=== PATIENT | female | born 1980 | race African-American/Black ===

== ENCOUNTER 2020-10-28 12:44 | Inpatient (IN) | payer OTHER ==
[2020-10-28 13:29] VITALS: BMI 22.2
[2020-10-28] MEDS ORDERED: BISMUTH SUBSALICYLATE 262 MG/15 ML BTL PO PRN (14:29)
[2020-10-28] MEDS ORDERED: ACETAMINOPHEN 325 MG TABLET (FP) PO PRN ×2 (14:29)
[2020-10-28] MEDS ORDERED: MAGNESIUM CITRATE 300 ML BOTTLE PO PRN (14:29)
[2020-10-28] MEDS ORDERED: ONDANSETRON *ODT* 4 MG TABLET SL PRN (14:29)
[2020-10-28] MEDS ORDERED: METHOCARBAMOL 500 MG TABLET PO PRN (14:29)
[2020-10-28] MEDS ORDERED: MENTHOL/PHENOL 1 EACH UD MM PRN (14:29)
[2020-10-28] MEDS ORDERED: IBUPROFEN 400 MG TABLET (FP) PO PRN (14:29)
[2020-10-28] MEDS ORDERED: MAG HYDROX/AL HYDROX/SIMETH 30 ML UNIT-DOSE CUP PO PRN (14:29)
[2020-10-28] MEDS ORDERED: chlordiazePOXIDE HCL 25 MG CAPSULE PO PRN (14:29)
[2020-10-28] MEDS ORDERED: MAGNESIUM HYDROX 2400MG/30ML ORAL SUSPENSION 30 ML CUP PO PRN (14:29)
[2020-10-28 17:44] LABS: HEMATOCRIT 36.2 % (32.4-45.2); HEMOGLOBIN 11.7 GM/dL (10.7-15.3); MCH 26.1 pg (25.7-33.7); MCHC 32.3 g/dl (32.0-36.0); MEAN CELL VOLUME 80.9 fl (80-96); MEAN PLT VOLUME 10.7 fl (7.5-11.1); PLATELET COUNT 206 K/MM3 (134-434); RBC 4.47 M/mm3 (3.60-5.2); RDW 14.2 % (11.6-15.6); WHITE BLOOD COUNT 5.7 K/mm3 (4.0-10.0)
[2020-10-28 17:46] LABS: ALBUMIN 3.4 g/dl (3.4-5.0); BLOOD UREA NITROGEN 9.7 mg/dL (7-18)
[2020-10-28 17:47] LABS: CALCIUM 9.1 mg/dL (8.5-10.1)
[2020-10-28 17:49] LABS: CREATININE 0.8 mg/dL (0.55-1.3)
[2020-10-28 17:50] LABS: BILIRUBIN,TOTAL 0.2 mg/dL (0.2-1)
[2020-10-28] MEDS: chlordiazePOXIDE HCL 25 MG CAPSULE PO SCH ×2 (18:14→22:29)
[2020-10-28] MEDS: PRENATAL VITAMINS W/ FOLIC ACID TABLET (FP) PO SCH (18:16)
[2020-10-28] MEDS: hydrOXYzine PAMOATE 25 MG CAPSULE (FP) PO SCH ×2 (18:17→22:31)
[2020-10-28] MEDS: MELATONIN 5 MG TABLETS PO SCH (22:07)
[2020-10-28] MEDS: THIAMINE HCL 100 MG TABLET (FP) PO SCH (22:07)
[2020-10-29] MEDS: chlordiazePOXIDE HCL 25 MG CAPSULE PO SCH (06:36)
[2020-10-29] MEDS: hydrOXYzine PAMOATE 25 MG CAPSULE (FP) PO SCH ×5 (06:37→22:38)
[2020-10-29] MEDS ORDERED: LORazepam 1 MG TABLET PO PRN (09:58)
[2020-10-29] MEDS: PRENATAL VITAMINS W/ FOLIC ACID TABLET (FP) PO SCH (11:38)
[2020-10-29] MEDS: LORazepam 2 MG TABLET PO SCH ×3 (11:38→22:54)
[2020-10-29] MEDS: FLUoxetine HCL 20 MG CAPSULE PO SCH (11:39)
[2020-10-29] MEDS: NICOTINE POLACRILEX 2 MG GUM BUC PRN (13:11)
[2020-10-29] MEDS: traZODone HCL 50 MG TABLET (FP) PO SCH (22:37)
[2020-10-29] MEDS: MELATONIN 5 MG TABLETS PO SCH (22:37)
[2020-10-29] MEDS: THIAMINE HCL 100 MG TABLET (FP) PO SCH (22:38)
[2020-10-30] MEDS ORDERED: chlordiazePOXIDE HCL 25 MG CAPSULE PO SCH (05:00)
[2020-10-30] MEDS: LORazepam 2 MG TABLET PO SCH (06:00)
[2020-10-30] MEDS: hydrOXYzine PAMOATE 25 MG CAPSULE (FP) PO SCH ×5 (07:00→22:38)
[2020-10-30] MEDS: PRENATAL VITAMINS W/ FOLIC ACID TABLET (FP) PO SCH (10:15)
[2020-10-30] MEDS: LORazepam 1 MG TABLET PO SCH ×3 (10:16→22:35)
[2020-10-30] MEDS: FLUoxetine HCL 20 MG CAPSULE PO SCH (10:16)
[2020-10-30] MEDS: POTASSIUM CHLORIDE TABS 20 MEQ TABLET.ER (FP) PO SCH ×3 (10:40→17:52)
[2020-10-30] MEDS: NICOTINE POLACRILEX 2 MG GUM BUC PRN ×3 (11:11→17:37)
[2020-10-30] MEDS: THIAMINE HCL 100 MG TABLET (FP) PO SCH (22:34)
[2020-10-30] MEDS: traZODone HCL 50 MG TABLET (FP) PO SCH (22:34)
[2020-10-30] MEDS: MELATONIN 5 MG TABLETS PO SCH (22:34)
[2020-10-31] MEDS ORDERED: chlordiazePOXIDE HCL 10 MG CAPSULE PO PRN
[2020-10-31] MEDS ORDERED: chlordiazePOXIDE HCL 10 MG CAPSULE PO SCH (05:00)
[2020-10-31] MEDS: LORazepam 1 MG TABLET PO SCH (06:11)
[2020-10-31] MEDS: hydrOXYzine PAMOATE 25 MG CAPSULE (FP) PO SCH ×5 (06:12→22:25)
[2020-10-31] MEDS: PRENATAL VITAMINS W/ FOLIC ACID TABLET (FP) PO SCH (10:51)
[2020-10-31] MEDS: FLUoxetine HCL 20 MG CAPSULE PO SCH (10:51)
[2020-10-31] MEDS: NICOTINE POLACRILEX 2 MG GUM BUC PRN ×3 (11:33→19:04)
[2020-10-31 14:07] LABS: SARS-CoV-2 NAA Not Detected (Not Detected)
[2020-10-31] MEDS: LORazepam 0.5 MG TABLET PO SCH ×2 (16:54→22:25)
[2020-10-31] MEDS: traZODone HCL 50 MG TABLET (FP) PO SCH (22:24)
[2020-10-31] MEDS: GABAPENTIN 100 MG CAPSULE PO SCH (22:25)
[2020-10-31] MEDS: THIAMINE HCL 100 MG TABLET (FP) PO SCH (22:25)
[2020-10-31] MEDS: MELATONIN 5 MG TABLETS PO SCH (22:26)
[2020-11-01] MEDS ORDERED: LORazepam 0.5 MG TABLET PO PRN
[2020-11-01] MEDS ORDERED: chlordiazePOXIDE HCL 10 MG CAPSULE PO SCH (05:00)
[2020-11-01] MEDS: LORazepam 0.5 MG TABLET PO SCH ×3 (06:26→17:48)
[2020-11-01] MEDS: GABAPENTIN 100 MG CAPSULE PO SCH ×3 (06:27→22:16)
[2020-11-01] MEDS: hydrOXYzine PAMOATE 25 MG CAPSULE (FP) PO SCH ×5 (06:27→22:16)
[2020-11-01] MEDS: PRENATAL VITAMINS W/ FOLIC ACID TABLET (FP) PO SCH (10:14)
[2020-11-01] MEDS: FLUoxetine HCL 20 MG CAPSULE PO SCH (10:14)
[2020-11-01] MEDS: MELATONIN 5 MG TABLETS PO SCH (22:16)
[2020-11-01] MEDS: THIAMINE HCL 100 MG TABLET (FP) PO SCH (22:16)
[2020-11-01] MEDS: traZODone HCL 50 MG TABLET (FP) PO SCH (22:16)
[2020-11-02] MEDS ORDERED: chlordiazePOXIDE HCL 10 MG CAPSULE PO ONE (05:00)
[2020-11-02] MEDS: LORazepam 0.5 MG TABLET PO SCH (06:51)
[2020-11-02] MEDS: hydrOXYzine PAMOATE 25 MG CAPSULE (FP) PO SCH ×2 (06:53→10:06)
[2020-11-02] MEDS: GABAPENTIN 100 MG CAPSULE PO SCH (06:53)
[2020-11-02 09:36] VITALS: BP 103/55; PULSE 82; TEMP 97.5
[2020-11-02] MEDS: FLUoxetine HCL 20 MG CAPSULE PO SCH (10:06)
[2020-11-02] MEDS: PRENATAL VITAMINS W/ FOLIC ACID TABLET (FP) PO SCH (10:06)
== END 2020-11-02 13:39 | disposition other institution (70) | DRG 774 ==
LOC: YASAS 12:44 → Y6N 13:59
PROVIDERS: ADMIT Allergy & Immunology; ATTEND Allergy & Immunology
PROC: HZ2ZZZZ Detoxification Services for Substance Abuse Treatment (ICD-10-PCS; principal; 2020-10-28)
DX: F10.230 Alcohol dependence with withdrawal, uncomplicated (principal); F14.20 Cocaine dependence, uncomplicated; F13.20 Sedative, hypnotic or anxiolytic dependence, uncomplicated; F17.210 Nicotine dependence, cigarettes, uncomplicated; F19.280 Other psychoactive substance dependence with psychoactive substance-induced anxiety disorder; F19.282 Other psychoactive substance dependence with psychoactive substance-induced sleep disorder; F19.24 Other psychoactive substance dependence with psychoactive substance-induced mood disorder; F43.10 Post-traumatic stress disorder, unspecified; F32.9 Major depressive disorder, single episode, unspecified; Z21 Asymptomatic human immunodeficiency virus [HIV] infection status; E87.6 Hypokalemia; Z62.810 Personal history of physical and sexual abuse in childhood; R63.6 Underweight; Z68.22 Body mass index [BMI] 22.0-22.9, adult; Z91.410 Personal history of adult physical and sexual abuse; I25.2 Old myocardial infarction; Z88.2 Allergy status to sulfonamides
CPT/HCPCS: 36415; 80053; 84132; 85027; 86780; C9803; U0003; U0005

== ENCOUNTER 2020-11-02 14:06 | Inpatient (IN) | payer OTHER ==
[2020-11-02] MEDS ORDERED: MAGNESIUM CITRATE 300 ML BOTTLE PO PRN (14:59)
[2020-11-02] MEDS ORDERED: MENTHOL/PHENOL 1 EACH UD MM PRN (14:59)
[2020-11-02] MEDS ORDERED: IBUPROFEN 400 MG TABLET (FP) PO PRN (14:59)
[2020-11-02] MEDS ORDERED: MAG HYDROX/AL HYDROX/SIMETH 30 ML UNIT-DOSE CUP PO PRN (14:59)
[2020-11-02] MEDS ORDERED: P-EPHED 60MG/TRIPROLIDI 2.5MG TABLET PO PRN (14:59)
[2020-11-02] MEDS ORDERED: hydrOXYzine PAMOATE 25 MG CAPSULE (FP) PO PRN (14:59)
[2020-11-02] MEDS ORDERED: ACETAMINOPHEN 325 MG TABLET (FP) PO PRN (14:59)
[2020-11-02] MEDS ORDERED: LOPERAMIDE HCL 2 MG CAPSULE PO PRN (14:59)
[2020-11-02] MEDS ORDERED: MAGNESIUM HYDROX 2400MG/30ML ORAL SUSPENSION 30 ML CUP PO PRN (14:59)
[2020-11-02] MEDS ORDERED: guaiFENesin 200 MG/10 ML 10 ML UNIT-DOSE CUPS PO PRN (14:59)
[2020-11-02] MEDS: NICOTINE POLACRILEX 2 MG GUM BUC PRN ×2 (17:02→21:40)
[2020-11-02] MEDS: traZODone HCL 50 MG TABLET (FP) PO SCH (21:39)
[2020-11-02] MEDS: MELATONIN 5 MG TABLETS PO SCH (21:39)
[2020-11-02] MEDS: THIAMINE HCL 100 MG TABLET (FP) PO SCH (21:39)
[2020-11-02] MEDS: GABAPENTIN 100 MG CAPSULE PO SCH (21:39)
[2020-11-03] MEDS: GABAPENTIN 100 MG CAPSULE PO SCH ×3 (06:17→21:27)
[2020-11-03] MEDS: NICOTINE POLACRILEX 2 MG GUM BUC PRN ×3 (06:17→17:13)
[2020-11-03] MEDS: FLUoxetine HCL 20 MG CAPSULE PO SCH (09:49)
[2020-11-03] MEDS: PRENATAL VITAMINS W/ FOLIC ACID TABLET (FP) PO SCH (09:49)
[2020-11-03] MEDS: NICOTINE 7 MG/24 HOURS TOPICAL PATCH TD SCH (09:50)
[2020-11-03] MEDS: THIAMINE HCL 100 MG TABLET (FP) PO SCH (21:26)
[2020-11-03] MEDS: traZODone HCL 50 MG TABLET (FP) PO SCH (21:26)
[2020-11-03] MEDS: MELATONIN 5 MG TABLETS PO SCH (21:26)
[2020-11-04] MEDS: GABAPENTIN 100 MG CAPSULE PO SCH ×3 (06:40→22:00)
[2020-11-04] MEDS: PRENATAL VITAMINS W/ FOLIC ACID TABLET (FP) PO SCH (10:17)
[2020-11-04] MEDS: NICOTINE 7 MG/24 HOURS TOPICAL PATCH TD SCH (10:17)
[2020-11-04] MEDS: FLUoxetine HCL 20 MG CAPSULE PO SCH (10:18)
[2020-11-04] MEDS: NICOTINE POLACRILEX 2 MG GUM BUC PRN ×4 (10:20→20:14)
[2020-11-04] MEDS: clonazePAM 0.5 MG ODT TABLETS PO SCH ×2 (11:56→21:59)
[2020-11-04] MEDS: THIAMINE HCL 100 MG TABLET (FP) PO SCH (22:00)
[2020-11-04] MEDS: MELATONIN 5 MG TABLETS PO SCH (22:00)
[2020-11-04] MEDS: traZODone HCL 50 MG TABLET (FP) PO SCH (22:00)
[2020-11-04] MEDS ORDERED: MASKS NR ONE (22:02)
[2020-11-05] MEDS: GABAPENTIN 100 MG CAPSULE PO SCH ×3 (06:36→21:52)
[2020-11-05] MEDS: NICOTINE POLACRILEX 2 MG GUM BUC PRN ×4 (09:05→21:53)
[2020-11-05] MEDS: NICOTINE 7 MG/24 HOURS TOPICAL PATCH TD SCH (10:17)
[2020-11-05] MEDS: clonazePAM 0.5 MG ODT TABLETS PO SCH ×2 (10:18→21:51)
[2020-11-05] MEDS: FLUoxetine HCL 20 MG CAPSULE PO SCH (10:18)
[2020-11-05] MEDS: PRENATAL VITAMINS W/ FOLIC ACID TABLET (FP) PO SCH (10:18)
[2020-11-05] MEDS: NEOMYCIN/POLYMYXN/HC OTIC SOLUTION 10 ML BOTTLE AU SCH (19:06)
[2020-11-05] MEDS: MELATONIN 5 MG TABLETS PO SCH (21:52)
[2020-11-05] MEDS: THIAMINE HCL 100 MG TABLET (FP) PO SCH (21:52)
[2020-11-05] MEDS: traZODone HCL 50 MG TABLET (FP) PO SCH (21:52)
[2020-11-05] MEDS ORDERED: PT OWN MED DRAWER 7, Y5N ONE (22:36)
[2020-11-05] MEDS: ERYTHROMYCIN 0.5% OPHTHALMIC OINTMENT 3.5 GM TUBE OU SCH (22:43)
[2020-11-06] MEDS: NEOMYCIN/POLYMYXN/HC OTIC SOLUTION 10 ML BOTTLE AU SCH ×4 (00:39→18:50)
[2020-11-06 04:25] LABS: SARS-CoV-2 NAA Not Detected (Not Detected)
[2020-11-06] MEDS: GABAPENTIN 100 MG CAPSULE PO SCH ×3 (06:28→22:05)
[2020-11-06] MEDS: NICOTINE 7 MG/24 HOURS TOPICAL PATCH TD SCH (10:33)
[2020-11-06] MEDS: clonazePAM 0.5 MG ODT TABLETS PO SCH ×2 (10:33→22:44)
[2020-11-06] MEDS: FLUoxetine HCL 20 MG CAPSULE PO SCH (10:33)
[2020-11-06] MEDS: PRENATAL VITAMINS W/ FOLIC ACID TABLET (FP) PO SCH (10:33)
[2020-11-06] MEDS: NICOTINE POLACRILEX 2 MG GUM BUC PRN ×3 (10:35→21:24)
[2020-11-06] MEDS ORDERED: PT OWN MED DRAWER 7, Y5N ONE (16:41)
[2020-11-06] MEDS: THIAMINE HCL 100 MG TABLET (FP) PO SCH (21:21)
[2020-11-06] MEDS: MELATONIN 5 MG TABLETS PO SCH (21:21)
[2020-11-06] MEDS: traZODone HCL 50 MG TABLET (FP) PO SCH (21:21)
[2020-11-06] MEDS: ERYTHROMYCIN 0.5% OPHTHALMIC OINTMENT 3.5 GM TUBE OU SCH (22:44)
[2020-11-07] MEDS: GABAPENTIN 100 MG CAPSULE PO SCH ×3 (06:39→22:07)
[2020-11-07] MEDS: NEOMYCIN/POLYMYXN/HC OTIC SOLUTION 10 ML BOTTLE AU SCH ×5 (06:40→23:18)
[2020-11-07] MEDS: NICOTINE 7 MG/24 HOURS TOPICAL PATCH TD SCH (10:43)
[2020-11-07] MEDS: PRENATAL VITAMINS W/ FOLIC ACID TABLET (FP) PO SCH (10:43)
[2020-11-07] MEDS: clonazePAM 0.5 MG ODT TABLETS PO SCH ×2 (10:45→22:07)
[2020-11-07] MEDS: FLUoxetine HCL 20 MG CAPSULE PO SCH (10:45)
[2020-11-07] MEDS: NICOTINE POLACRILEX 2 MG GUM BUC PRN ×5 (10:46→19:58)
[2020-11-07] MEDS ORDERED: PT OWN MED DRAWER 7, Y5N ONE (17:02)
[2020-11-07] MEDS: ERYTHROMYCIN 0.5% OPHTHALMIC OINTMENT 3.5 GM TUBE OU SCH (21:45)
[2020-11-07] MEDS: MELATONIN 5 MG TABLETS PO SCH (22:06)
[2020-11-07] MEDS: traZODone HCL 50 MG TABLET (FP) PO SCH (22:07)
[2020-11-07] MEDS: THIAMINE HCL 100 MG TABLET (FP) PO SCH (22:07)
[2020-11-08] MEDS: NEOMYCIN/POLYMYXN/HC OTIC SOLUTION 10 ML BOTTLE AU SCH ×3 (06:52→17:33)
[2020-11-08] MEDS: GABAPENTIN 100 MG CAPSULE PO SCH ×3 (06:55→21:18)
[2020-11-08] MEDS: FLUoxetine HCL 20 MG CAPSULE PO SCH (10:13)
[2020-11-08] MEDS: NICOTINE 7 MG/24 HOURS TOPICAL PATCH TD SCH (10:13)
[2020-11-08] MEDS: clonazePAM 0.5 MG ODT TABLETS PO SCH ×2 (10:13→22:17)
[2020-11-08] MEDS: PRENATAL VITAMINS W/ FOLIC ACID TABLET (FP) PO SCH (10:13)
[2020-11-08] MEDS: NICOTINE POLACRILEX 2 MG GUM BUC PRN ×4 (10:20→19:37)
[2020-11-08] MEDS: THIAMINE HCL 100 MG TABLET (FP) PO SCH (21:17)
[2020-11-08] MEDS: traZODone HCL 50 MG TABLET (FP) PO SCH (21:18)
[2020-11-08] MEDS: MELATONIN 5 MG TABLETS PO SCH (21:18)
[2020-11-08] MEDS: ERYTHROMYCIN 0.5% OPHTHALMIC OINTMENT 3.5 GM TUBE OU SCH (22:19)
[2020-11-09] MEDS: NEOMYCIN/POLYMYXN/HC OTIC SOLUTION 10 ML BOTTLE AU SCH ×4 (01:27→17:48)
[2020-11-09] MEDS: GABAPENTIN 100 MG CAPSULE PO SCH ×3 (07:41→21:39)
[2020-11-09] MEDS: NICOTINE 7 MG/24 HOURS TOPICAL PATCH TD SCH (10:12)
[2020-11-09] MEDS: PRENATAL VITAMINS W/ FOLIC ACID TABLET (FP) PO SCH (10:13)
[2020-11-09] MEDS: clonazePAM 0.5 MG ODT TABLETS PO SCH ×2 (10:14→23:15)
[2020-11-09] MEDS: FLUoxetine HCL 20 MG CAPSULE PO SCH (10:14)
[2020-11-09] MEDS: NICOTINE POLACRILEX 2 MG GUM BUC PRN ×5 (10:15→21:40)
[2020-11-09] MEDS ORDERED: PT OWN MED DRAWER 7, Y5N ONE ×2 (17:27→20:15)
[2020-11-09] MEDS: THIAMINE HCL 100 MG TABLET (FP) PO SCH (21:39)
[2020-11-09] MEDS: traZODone HCL 50 MG TABLET (FP) PO SCH (21:39)
[2020-11-09] MEDS: MELATONIN 5 MG TABLETS PO SCH (21:39)
[2020-11-09] MEDS: ERYTHROMYCIN 0.5% OPHTHALMIC OINTMENT 3.5 GM TUBE OU SCH (23:15)
[2020-11-10] MEDS: NEOMYCIN/POLYMYXN/HC OTIC SOLUTION 10 ML BOTTLE AU SCH ×4 (00:42→19:08)
[2020-11-10] MEDS: GABAPENTIN 100 MG CAPSULE PO SCH ×3 (06:16→21:14)
[2020-11-10 07:50] VITALS: TEMP 96.9
[2020-11-10] MEDS: NICOTINE 7 MG/24 HOURS TOPICAL PATCH TD SCH (10:25)
[2020-11-10] MEDS: FLUoxetine HCL 20 MG CAPSULE PO SCH (10:25)
[2020-11-10] MEDS: PRENATAL VITAMINS W/ FOLIC ACID TABLET (FP) PO SCH (10:25)
[2020-11-10] MEDS: NICOTINE POLACRILEX 2 MG GUM BUC PRN ×3 (10:27→20:04)
[2020-11-10] MEDS: clonazePAM 0.5 MG ODT TABLETS PO SCH ×2 (12:28→22:17)
[2020-11-10] MEDS: MELATONIN 5 MG TABLETS PO SCH (21:14)
[2020-11-10] MEDS: traZODone HCL 50 MG TABLET (FP) PO SCH (21:14)
[2020-11-10] MEDS: THIAMINE HCL 100 MG TABLET (FP) PO SCH (21:14)
[2020-11-10] MEDS ORDERED: PT OWN MED DRAWER 7, Y5N ONE (22:18)
[2020-11-10] MEDS: ERYTHROMYCIN 0.5% OPHTHALMIC OINTMENT 3.5 GM TUBE OU SCH (22:20)
[2020-11-11] MEDS: NEOMYCIN/POLYMYXN/HC OTIC SOLUTION 10 ML BOTTLE AU SCH ×4 (00:37→17:18)
[2020-11-11] MEDS: GABAPENTIN 100 MG CAPSULE PO SCH ×3 (06:46→21:57)
[2020-11-11] MEDS: PRENATAL VITAMINS W/ FOLIC ACID TABLET (FP) PO SCH (10:12)
[2020-11-11] MEDS: NICOTINE 7 MG/24 HOURS TOPICAL PATCH TD SCH (10:12)
[2020-11-11] MEDS: FLUoxetine HCL 20 MG CAPSULE PO SCH (10:13)
[2020-11-11] MEDS: clonazePAM 0.5 MG ODT TABLETS PO SCH ×2 (10:14→21:57)
[2020-11-11] MEDS: NICOTINE POLACRILEX 2 MG GUM BUC PRN ×5 (10:15→21:59)
[2020-11-11] MEDS: THIAMINE HCL 100 MG TABLET (FP) PO SCH (21:57)
[2020-11-11] MEDS: MELATONIN 5 MG TABLETS PO SCH (21:57)
[2020-11-11] MEDS: ERYTHROMYCIN 0.5% OPHTHALMIC OINTMENT 3.5 GM TUBE OU SCH (21:57)
[2020-11-11] MEDS: traZODone HCL 50 MG TABLET (FP) PO SCH (21:58)
[2020-11-12] MEDS: NEOMYCIN/POLYMYXN/HC OTIC SOLUTION 10 ML BOTTLE AU SCH ×4 (01:27→17:28)
[2020-11-12] MEDS: GABAPENTIN 100 MG CAPSULE PO SCH ×3 (06:19→22:43)
[2020-11-12] MEDS: NICOTINE POLACRILEX 2 MG GUM BUC PRN ×3 (10:41→22:31)
[2020-11-12] MEDS: PRENATAL VITAMINS W/ FOLIC ACID TABLET (FP) PO SCH (10:41)
[2020-11-12] MEDS: FLUoxetine HCL 20 MG CAPSULE PO SCH (10:42)
[2020-11-12] MEDS: NICOTINE 7 MG/24 HOURS TOPICAL PATCH TD SCH (10:42)
[2020-11-12] MEDS: clonazePAM 0.5 MG ODT TABLETS PO SCH ×2 (11:09→22:29)
[2020-11-12] MEDS: MELATONIN 5 MG TABLETS PO SCH (22:30)
[2020-11-12] MEDS: THIAMINE HCL 100 MG TABLET (FP) PO SCH (22:30)
[2020-11-12] MEDS: ERYTHROMYCIN 0.5% OPHTHALMIC OINTMENT 3.5 GM TUBE OU SCH (22:30)
[2020-11-12] MEDS: traZODone HCL 50 MG TABLET (FP) PO SCH (22:30)
[2020-11-13] MEDS: NEOMYCIN/POLYMYXN/HC OTIC SOLUTION 10 ML BOTTLE AU SCH ×4 (00:33→18:05)
[2020-11-13] MEDS: GABAPENTIN 100 MG CAPSULE PO SCH ×3 (06:55→21:35)
[2020-11-13] MEDS: NICOTINE POLACRILEX 2 MG GUM BUC PRN ×3 (09:25→20:07)
[2020-11-13] MEDS: PRENATAL VITAMINS W/ FOLIC ACID TABLET (FP) PO SCH (10:41)
[2020-11-13] MEDS: FLUoxetine HCL 20 MG CAPSULE PO SCH (10:42)
[2020-11-13] MEDS: NICOTINE 7 MG/24 HOURS TOPICAL PATCH TD SCH (10:42)
[2020-11-13] MEDS: clonazePAM 0.5 MG ODT TABLETS PO SCH ×2 (11:07→23:43)
[2020-11-13] MEDS ORDERED: PT OWN MED DRAWER 7, Y5N ONE (20:53)
[2020-11-13] MEDS: traZODone HCL 50 MG TABLET (FP) PO SCH (21:34)
[2020-11-13] MEDS: THIAMINE HCL 100 MG TABLET (FP) PO SCH (21:34)
[2020-11-13] MEDS: MELATONIN 5 MG TABLETS PO SCH (21:34)
[2020-11-13] MEDS: ERYTHROMYCIN 0.5% OPHTHALMIC OINTMENT 3.5 GM TUBE OU SCH (21:35)
[2020-11-14] MEDS: NEOMYCIN/POLYMYXN/HC OTIC SOLUTION 10 ML BOTTLE AU SCH ×5 (01:05→17:29)
[2020-11-14] MEDS: GABAPENTIN 100 MG CAPSULE PO SCH ×3 (06:40→21:54)
[2020-11-14] MEDS: PRENATAL VITAMINS W/ FOLIC ACID TABLET (FP) PO SCH (10:06)
[2020-11-14] MEDS: clonazePAM 0.5 MG ODT TABLETS PO SCH ×2 (10:07→21:54)
[2020-11-14] MEDS: FLUoxetine HCL 20 MG CAPSULE PO SCH (10:07)
[2020-11-14] MEDS: NICOTINE 7 MG/24 HOURS TOPICAL PATCH TD SCH (10:08)
[2020-11-14] MEDS: NICOTINE POLACRILEX 2 MG GUM BUC PRN ×5 (10:09→21:35)
[2020-11-14] MEDS: traZODone HCL 50 MG TABLET (FP) PO SCH (21:33)
[2020-11-14] MEDS: MELATONIN 5 MG TABLETS PO SCH (21:33)
[2020-11-14] MEDS: THIAMINE HCL 100 MG TABLET (FP) PO SCH (21:33)
[2020-11-14] MEDS: ERYTHROMYCIN 0.5% OPHTHALMIC OINTMENT 3.5 GM TUBE OU SCH (21:54)
[2020-11-15] MEDS: NEOMYCIN/POLYMYXN/HC OTIC SOLUTION 10 ML BOTTLE AU SCH ×4 (00:47→17:24)
[2020-11-15] MEDS: GABAPENTIN 100 MG CAPSULE PO SCH ×3 (06:26→21:59)
[2020-11-15] MEDS: FLUoxetine HCL 20 MG CAPSULE PO SCH (10:12)
[2020-11-15] MEDS: PRENATAL VITAMINS W/ FOLIC ACID TABLET (FP) PO SCH (10:12)
[2020-11-15] MEDS: NICOTINE 7 MG/24 HOURS TOPICAL PATCH TD SCH (10:13)
[2020-11-15] MEDS: NICOTINE POLACRILEX 2 MG GUM BUC PRN ×5 (10:13→20:50)
[2020-11-15] MEDS: clonazePAM 0.5 MG ODT TABLETS PO SCH ×2 (12:37→21:59)
[2020-11-15] MEDS: MELATONIN 5 MG TABLETS PO SCH (21:59)
[2020-11-15] MEDS: traZODone HCL 50 MG TABLET (FP) PO SCH (21:59)
[2020-11-15] MEDS: ERYTHROMYCIN 0.5% OPHTHALMIC OINTMENT 3.5 GM TUBE OU SCH (22:00)
[2020-11-15] MEDS: THIAMINE HCL 100 MG TABLET (FP) PO SCH (22:00)
[2020-11-15 23:43] VITALS: BP 104/66; PULSE 56
[2020-11-16] MEDS: NEOMYCIN/POLYMYXN/HC OTIC SOLUTION 10 ML BOTTLE AU SCH ×2 (01:50→06:52)
[2020-11-16] MEDS: GABAPENTIN 100 MG CAPSULE PO SCH (06:52)
[2020-11-16] MEDS: FLUoxetine HCL 20 MG CAPSULE PO SCH (09:50)
[2020-11-16] MEDS: PRENATAL VITAMINS W/ FOLIC ACID TABLET (FP) PO SCH (09:50)
[2020-11-16] MEDS: clonazePAM 0.5 MG ODT TABLETS PO SCH (09:51)
[2020-11-16] MEDS: NICOTINE POLACRILEX 2 MG GUM BUC PRN (09:51)
[2020-11-16] MEDS: NICOTINE 7 MG/24 HOURS TOPICAL PATCH TD SCH (09:51)
== END 2020-11-16 10:40 | disposition home or self-care (01) | DRG 772 ==
LOC: YASAS 14:06 → Y5N 14:08
PROVIDERS: ADMIT Allergy & Immunology; ATTEND Allergy & Immunology
PROC: HZ42ZZZ Group Counseling for Substance Abuse Treatment, Cognitive-Behavioral (ICD-10-PCS; principal; 2020-11-02)
DX: F10.20 Alcohol dependence, uncomplicated (principal); F14.20 Cocaine dependence, uncomplicated; F13.20 Sedative, hypnotic or anxiolytic dependence, uncomplicated; F17.210 Nicotine dependence, cigarettes, uncomplicated; F19.282 Other psychoactive substance dependence with psychoactive substance-induced sleep disorder; F19.280 Other psychoactive substance dependence with psychoactive substance-induced anxiety disorder; F19.24 Other psychoactive substance dependence with psychoactive substance-induced mood disorder; F43.10 Post-traumatic stress disorder, unspecified; F32.9 Major depressive disorder, single episode, unspecified; Z21 Asymptomatic human immunodeficiency virus [HIV] infection status; H60.92 Unspecified otitis externa, left ear; H00.015 Hordeolum externum left lower eyelid; Z62.810 Personal history of physical and sexual abuse in childhood; Z91.5 Personal history of self-harm; Z91.14 Patient's other noncompliance with medication regimen
CPT/HCPCS: C9803; U0003; U0005

== ENCOUNTER 2022-02-20 11:52 | Inpatient (IN) | payer OTHER ==
[2022-02-20 12:52] VITALS: BMI 20.6
[2022-02-20] MEDS ORDERED: BENZOCAINE/MENTHOL (CHLORASEPTIC ) LOZENGE MM PRN (14:41)
[2022-02-20] MEDS ORDERED: DICYCLOMINE HCL 10 MG CAPSULE PO PRN (14:41)
[2022-02-20] MEDS ORDERED: ACETAMINOPHEN 325 MG TABLET (FP) PO PRN ×2 (14:41)
[2022-02-20] MEDS ORDERED: BISMUTH SUBSALICYLATE 262 MG/15 ML BTL PO PRN (14:41)
[2022-02-20] MEDS ORDERED: NICOTINE 10 MG CARTRIDGE (INHALER) IH PRN (14:41)
[2022-02-20] MEDS ORDERED: METHOCARBAMOL 500 MG TABLET PO PRN (14:41)
[2022-02-20] MEDS ORDERED: MAGNESIUM HYDROX 2400MG/30ML ORAL SUSPENSION 30 ML CUP PO PRN (14:41)
[2022-02-20] MEDS ORDERED: MAG HYDROX/AL HYDROX/SIMETH 30 ML UNIT-DOSE CUP PO PRN (14:41)
[2022-02-20] MEDS ORDERED: IBUPROFEN 600 MG TABLET (FP) PO PRN (14:41)
[2022-02-20] MEDS ORDERED: IBUPROFEN 400 MG TABLET (FP) PO PRN (14:41)
[2022-02-20] MEDS ORDERED: LOPERAMIDE HCL 2 MG CAPSULE PO PRN (14:41)
[2022-02-20] MEDS ORDERED: MAGNESIUM CITRATE 300 ML BOTTLE PO PRN (14:41)
[2022-02-20] MEDS ORDERED: ONDANSETRON *ODT* 4 MG TABLET SL PRN (14:41)
[2022-02-20] MEDS: PRENATAL VITAMINS W/ FOLIC ACID TABLET (FP) PO SCH (15:31)
[2022-02-20] MEDS: BICTEGRAV/EMTRICIT/TENOFOV (BIKTARVY) 50-200-25 MG TABLET PO SCH (15:31)
[2022-02-20] MEDS: chlordiazePOXIDE HCL 25 MG CAPSULE PO PRN (15:40)
[2022-02-20] MEDS: chlordiazePOXIDE HCL 25 MG CAPSULE PO SCH ×2 (17:35→23:08)
[2022-02-20] MEDS: hydrOXYzine PAMOATE 25 MG CAPSULE (FP) PO SCH ×2 (17:54→23:08)
[2022-02-20] MEDS: THIAMINE HCL 100 MG TABLET (FP) PO SCH (23:07)
[2022-02-20] MEDS: MELATONIN 5 MG TABLETS PO SCH (23:08)
[2022-02-21] MEDS: chlordiazePOXIDE HCL 25 MG CAPSULE PO SCH ×4 (05:45→22:25)
[2022-02-21] MEDS: hydrOXYzine PAMOATE 25 MG CAPSULE (FP) PO SCH ×5 (05:45→22:25)
[2022-02-21] MEDS: PRENATAL VITAMINS W/ FOLIC ACID TABLET (FP) PO SCH (10:27)
[2022-02-21] MEDS: FLUoxetine HCL 20 MG CAPSULE PO SCH (10:27)
[2022-02-21] MEDS: NICOTINE POLACRILEX 4 MG GUM BUC PRN ×2 (10:30→18:07)
[2022-02-21 12:01] LABS: HEMATOCRIT 33.5 % (32.4-45.2); HEMOGLOBIN 11.3 GM/dL (10.7-15.3); MCH 26.8 pg (25.7-33.7); MCHC 33.8 g/dl (32.0-36.0); MEAN CELL VOLUME 79.3 fl (80-96); MEAN PLT VOLUME 9.4 fl (7.5-11.1); PLATELET COUNT 146 10^3/uL (134-434); RBC 4.23 M/mm3 (3.60-5.2); RDW 14.1 % (11.6-15.6); WHITE BLOOD COUNT 5.1 K/mm3 (4.0-10.0)
[2022-02-21 12:10] LABS: ALBUMIN 3.2 g/dl (3.4-5.0); BLOOD UREA NITROGEN 15.9 mg/dL (7-18); CALCIUM 8.5 mg/dL (8.5-10.1)
[2022-02-21 12:12] LABS: CREATININE 0.7 mg/dL (0.55-1.3); PHOSPHOROUS 3.7 mg/dL (2.5-4.9)
[2022-02-21 12:14] LABS: BILIRUBIN,TOTAL 0.8 mg/dL (0.2-1); MAGNESIUM 1.9 mg/dL (1.8-2.4); TOT PROT 6.9 g/dl (6.4-8.2)
[2022-02-21] MEDS: traZODone HCL 50 MG TABLET (FP) PO SCH (22:25)
[2022-02-21] MEDS: MELATONIN 5 MG TABLETS PO SCH (22:25)
[2022-02-21] MEDS: THIAMINE HCL 100 MG TABLET (FP) PO SCH (22:25)
[2022-02-22] MEDS: chlordiazePOXIDE HCL 25 MG CAPSULE PO SCH ×5 (06:56→22:33)
[2022-02-22] MEDS: hydrOXYzine PAMOATE 25 MG CAPSULE (FP) PO SCH ×5 (06:56→22:33)
[2022-02-22] MEDS: BICTEGRAV/EMTRICIT/TENOFOV (BIKTARVY) 50-200-25 MG TABLET PO SCH (08:02)
[2022-02-22] MEDS: FLUoxetine HCL 20 MG CAPSULE PO SCH (10:43)
[2022-02-22] MEDS: PRENATAL VITAMINS W/ FOLIC ACID TABLET (FP) PO SCH (10:43)
[2022-02-22] MEDS: NICOTINE POLACRILEX 4 MG GUM BUC PRN ×2 (14:51→19:38)
[2022-02-22] MEDS: chlordiazePOXIDE HCL 25 MG CAPSULE PO PRN (15:10)
[2022-02-22 18:05] VITALS: RESP 17
[2022-02-22] MEDS: MELATONIN 5 MG TABLETS PO SCH (22:24)
[2022-02-22] MEDS: THIAMINE HCL 100 MG TABLET (FP) PO SCH (22:24)
[2022-02-22] MEDS: traZODone HCL 50 MG TABLET (FP) PO SCH (22:24)
[2022-02-23] MEDS ORDERED: chlordiazePOXIDE HCL 10 MG CAPSULE PO PRN
[2022-02-23] MEDS: hydrOXYzine PAMOATE 25 MG CAPSULE (FP) PO SCH ×3 (06:07→14:56)
[2022-02-23] MEDS: chlordiazePOXIDE HCL 10 MG CAPSULE PO SCH ×2 (06:07→11:57)
[2022-02-23 06:26] VITALS: TEMP 97.1
[2022-02-23 09:35] VITALS: BP 96/52; PULSE 66
[2022-02-23] MEDS: FLUoxetine HCL 20 MG CAPSULE PO SCH (11:52)
[2022-02-23] MEDS: PRENATAL VITAMINS W/ FOLIC ACID TABLET (FP) PO SCH (11:52)
[2022-02-23] MEDS: BICTEGRAV/EMTRICIT/TENOFOV (BIKTARVY) 50-200-25 MG TABLET PO SCH (11:52)
[2022-02-24] MEDS ORDERED: chlordiazePOXIDE HCL 10 MG CAPSULE PO SCH (05:00)
[2022-02-25] MEDS ORDERED: chlordiazePOXIDE HCL 10 MG CAPSULE PO ONE (05:00)
== END 2022-02-23 15:13 | disposition home or self-care (01) | DRG 774 ==
LOC: YASAS 11:52 → Y3N 14:10
PROVIDERS: ADMIT Allergy & Immunology; ATTEND Psychiatry & Neurology Pain Medicine
PROC: HZ2ZZZZ Detoxification Services for Substance Abuse Treatment (ICD-10-PCS; principal; 2022-02-20)
DX: F10.230 Alcohol dependence with withdrawal, uncomplicated (principal); F14.20 Cocaine dependence, uncomplicated; F12.20 Cannabis dependence, uncomplicated; F17.210 Nicotine dependence, cigarettes, uncomplicated; F19.282 Other psychoactive substance dependence with psychoactive substance-induced sleep disorder; F19.24 Other psychoactive substance dependence with psychoactive substance-induced mood disorder; F43.10 Post-traumatic stress disorder, unspecified; F32.A Depression, unspecified; Z21 Asymptomatic human immunodeficiency virus [HIV] infection status; Z62.810 Personal history of physical and sexual abuse in childhood; R63.4 Abnormal weight loss; Z68.20 Body mass index [BMI] 20.0-20.9, adult; Z88.2 Allergy status to sulfonamides
CPT/HCPCS: 36415; 80053; 81025; 83735; 84100; 85027; 86780; 87811; C9803-CS; U0003; U0005